=== PATIENT | female | born 1950 | race Caucasian/White ===

== ENCOUNTER 2019-06-29 17:14 | Emergency (ER) | payer OTHER ==
--- OUTSIDE RECORDS SUMMARY | 2019-06-29 17:17 | XMS REPORT ---
:1950 [facility] Address [address] [place] [address] [address] Care Team Providers Name Role Phone Unavailable Unavailable Unavailable Problems This patient has no known problems. Allergies, Adverse Reactions, Alerts This patient has no known allergies or adverse reactions. Medications This patient has no known medications. Encounters Start End Encounter Admission Attending Care Care Encounter Date/Time Date/Time Type Type Clinicians Facility Department ID 2019-06-18 2019-06-15 Inpatient E [facility] MED [id number] 13:32:00 23:33:00 2019-06-15 2019-06-15 Outpatient [facility] J[facility]NY [id number] 20:40:00 20:40:00
[2019-06-29 18:03] LABS: Absolute Lymphocytes (CBC) 1.8 K/uL (0.7-4.9); Basophils % 0.7 % (0-1.3); Hematocrit 22.1 % (36.0-45.0); Lymphocytes % 17.3 % (15.3-44.8); MPV 7.4 fL (7.6-11.3); RBC Red Blood Cell Count 2.55 M/uL (3.86-4.86)
[2019-06-29 18:26] LABS: Albumin 3.2 g/dL (3.4-5.0); Bilirubin Direct 0.2 mg/dL (0-0.2); Bilirubin Total 0.6 mg/dL (0.2-1.0); Potassium 4.3 mmol/L (3.5-5.1)
--- NOTE | 2019-06-29 19:09 | RAD REPORT ---
EXAM DESCRIPTION: CT - Chest For Pe Angio - 06/29/2019 6:52 pm CLINICAL HISTORY: Chest pain. shortness of breath, recent rib fracture COMPARISON: Abdomen Pelvis W Contrast dated 06/29/2019 TECHNIQUE: CT angiogram of the pulmonary arteries was performed with MIP. All CT scans are performed using dose optimization technique as appropriate and may include automated exposure control or mA/KV adjustment according to patient size. FINDINGS: No evidence of pulmonary thromboembolism. No acute aortic finding demonstrated. Airspace opacities are present in both lung bases, greater on the left, probably representing atelect asis. Small left pleural effusion is noted. There are fractures of multiple left-sided ribs, anteriorly involving ribs 1-5 and more laterally inv olving ribs 6-9. IMPRESSION: No evidence of pulmonary thromboembolism. Bibasilar atelectasis is present, greater on the left with small left pleural effusion. Early pneumon ia left base cannot be excluded. Multiple minimally displaced left-sided rib fractures.
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
--- NOTE | 2019-07-01 12:39 | EKG ---
Test Date: 2019-06-29 Test Time: 17:38:14 Top Tile Decorator: BRINDA MEASUREMENT RESULTS: Intervals: Rate: 77 [place]: 142 QRSD: 88 QT: 400 QTc: 452 [place]: P: -11 [place]: 142 QRS: -28 T: -3 INTERPRETIVE STATEMENTS: Normal sinus rhythm Septal infarct, age undetermined Abnormal ECG Compared to ECG 08/17/2006 01:24:45 No significant changes Electronically Signed On 07-01-19 12:33:19 CDT by Sekou Mcfarlane
== END 2019-06-29 20:36 | disposition home or self-care (01) ==
LOC: ER 17:14
DX: J18.9 Pneumonia, unspecified organism (principal); E11.9 Type 2 diabetes mellitus without complications; I10 Essential (primary) hypertension; Z88.0 Allergy status to penicillin; Z79.84 Long term (current) use of oral hypoglycemic drugs
CPT/HCPCS: 93005; 85025; 80048; 36415; 86900; 86850; 86901; 80076; 83690; 71275; 74177; Q9967

== ENCOUNTER 2019-06-30 11:34 | Emergency (ER) | payer OTHER ==
--- OUTSIDE RECORDS SUMMARY | 2019-06-30 11:36 | XMS REPORT ---
:1950 [facility] Address [address] [place] [address] Dr. [address]ouse [address] [place] [id number] Care Team Providers Name Role Phone Unavailable Unavailable Unavailable Problems This patient has no known problems. Allergies, Adverse Reactions, Alerts This patient has no known allergies or adverse reactions. Medications This patient has no known medications. Encounters Start End Encounter Admission Attending Care Care Encounter Date/Time Date/Time Type Type Clinicians Facility Department ID 2019-06-18 2019-06-15 Inpatient E [facility] MED [id number] 13:32:00 23:33:00 2019-06-15 2019-06-15 Outpatient [facility] J[facility]NY [id number] 20:40:00 20:40:00
[2019-06-30 13:10] LABS: Absolute Lymphocytes (CBC) 1.4 K/uL (0.7-4.9); Basophils % 0.6 % (0-1.3); Hematocrit 20.7 % (36.0-45.0); Lymphocytes % 16.3 % (15.3-44.8); MPV 7.2 fL (7.6-11.3)
[2019-06-30 13:17] LABS: Potassium 4.4 mmol/L (3.5-5.1)
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
== END 2019-06-30 15:16 | disposition short-term general hospital (02) ==
LOC: ER 11:34
DX: S30.1XXD Contusion of abdominal wall, subsequent encounter (principal); V49.9XXD Car occupant (driver) (passenger) injured in unspecified traffic accident, subsequent encounter; E11.9 Type 2 diabetes mellitus without complications; I10 Essential (primary) hypertension; D64.9 Anemia, unspecified; Z88.0 Allergy status to penicillin
CPT/HCPCS: 36415; 80048; 85025; 99285